=== PATIENT | male | born 1950 | race Caucasian/White ===

== ENCOUNTER 2016-06-18 22:42 | Emergency (ER) | payer BC, OTHER ==
[~2016-06-18] VITALS: Ht 177.8 cm; Wt 103.4 kg
[2016-06-18 22:56] VITALS: BP 172/108
[2016-06-18 23:35] LABS: ADD UA MICROSCOPIC NO; KETONES,URINE NEGATIVE (NEGATIVE); LEUKOCYTE ESTERASE ,URINE NEGATIVE (NEGATIVE)
== END 2016-06-18 23:43 | disposition home or self-care (01) ==
LOC: ER 22:47
DX: N39.0 Urinary tract infection, site not specified (principal); Z88.1 Allergy status to other antibiotic agents; Z88.8 Allergy status to other drugs, medicaments and biological substances
CPT/HCPCS: 81001; 87086; 99284; A4606; Z7610; 81000-TC